=== PATIENT | female | born 1955 | race African-American/Black ===

== ENCOUNTER 2023-12-23 06:07 | Emergency (ER) | payer MEDICARE, MEDICAID ==
[~2023-12-23] VITALS: Ht 162.6 cm; Wt 145.0 kg
[~2023-12-23 06:07] MED LIST: CALC-4 PO; TRAM50TA3 PO
[2023-12-23 06:16] VITALS: BP 155/93; PULSE 93; RESP 18; TEMP 98.4; O2SAT 97
[2023-12-23 07:55] LABS: BASOPHILS % 0.7 % (0.0-2.0); EOSINOPHILS % 4.8 % (0.0-5.0); HEMATOCRIT. 42.2 % (36.0-48.0); HEMOGLOBIN. 13.9 g/dL (12.0-16.0); LYMPHOCYTES % 25.6 % (20.0-50.0); MEAN CORPUSCULAR HEMOGLOBIN 29.3 pg (28.0-32.0); MEAN CORPUSCULAR HGB CONC 32.9 g/dL (31.0-37.0); MEAN PLATELET VOLUME 9.3 fl (7.4-10.4); MONOCYTES % 9.6 % (2.0-8.0); NEUTROPHILS % 59.3 % (40.0-76.0); PLATELET 215 x1000/uL (130-400); RED BLOOD CELL COUNT 4.74 mill/uL (4.2-5.4); RED CELL DISTRIBUTION WIDTH 14.7 % (11.6-14.6); WHITE BLOOD COUNT 8.2 x1000/uL (4.5-11.0)
[2023-12-23 08:15] LABS: ALANINE AMINOTRANSFERASE 11 IU/L (10-49); ALBUMIN 4.3 g/dL (3.2-4.8); ASPARTATE AMINOTRANSFERASE 17 IU/L (<34); BILIRUBIN TOTAL 0.6 mg/dL (0.1-1.0); CALCIUM 9.1 mg/dL (8.7-10.4); CARBON DIOXIDE 31 mEq/L (21-32); CHLORIDE 107 mEq/L (98-107); CREATININE 0.7 mg/dL (0.6-1.0); GLUCOSE 105 mg/dL (70-105); POTASSIUM 3.4 mEq/L (3.5-5.1); PROTEIN TOTAL 7.7 g/dL (6.0-8.3); SODIUM 142 mEq/L (136-145); UREA NITROGEN BLOOD 13 mg/dL (9-23)
[2023-12-23 08:43] LABS: TROPONIN I HIGH SENSITIVITY < 4 ng/L (3.0-34)
[2023-12-23 09:58] LABS: TROPONIN I HIGH SENSITIVITY < 4 ng/L (3.0-34)
[2023-12-23] MEDS: ACETAMINOPHEN 325MG TABLET PO ONE (12:30)
[2023-12-23] MEDS: KETOROLAC 60MG/2ML VIAL IM ONE (12:30)
[2023-12-23] MEDS ORDERED: BACI28.32 TP (12:38)
[2023-12-23] MEDS ORDERED: TOPUD MT (12:38)
[2023-12-23] MEDS ORDERED: IBUP-1525 MT (12:38)
== END 2023-12-23 14:44 | disposition home or self-care (01) ==
LOC: ER 06:12
DX: S20.219A Contusion of unspecified front wall of thorax, initial encounter (principal); S80.212A Abrasion, left knee, initial encounter; J45.909 Unspecified asthma, uncomplicated; E05.90 Thyrotoxicosis, unspecified without thyrotoxic crisis or storm; Z88.0 Allergy status to penicillin; X58.XXXA Exposure to other specified factors, initial encounter; Y93.89 Activity, other specified; Y92.89 Other specified places as the place of occurrence of the external cause; Y99.8 Other external cause status
CPT/HCPCS: 36415; 71045; 80053; 83880; 84484; 85025; 93005; 96372; 99285